=== PATIENT | male | born 1965 | race Caucasian/White ===

== ENCOUNTER → 2020-06-08 | Outpatient (CLI) | payer OTHER, SELFPAY ==
--- NOTE | 2020-06-08 15:35 | US_ITS ---
STUDY: LEFT UPPER EXTREMITY LIMITED ULTRASOUND REASON FOR EXAM: Male, 55 years old. Left shoulder pain and swelling. No lumps identified clinically. TECHNIQUE: Ultrasound evaluation of the left shoulder was performed with real-time and static hall-scale imaging. Images of the contralateral shoulder for comparison. COMPARISON: None. FINDINGS: Within the soft tissues of the left shoulder 0.8 to 1.2 cm deep to the skin surface are a total of 3 well-circumscribed nonvascular hypoechoic nodules measuring at most 6 mm x 6 mm x 2 mm. Several similarly located nonvascular hypoechoic nodules are present in the soft tissues of the right shoulder with the largest measuring 7 mm x 7 mm x 4 mm. US/Head/Neck Soft Tissue IMPRESSION: Subcentimeter superficial nonvascular hypoechoic nodules within the soft tissue of both shoulders of uncertain clinical significance. If further evaluation is clinically warranted consider MRI. Electronically Signed: Yon Guerra MD at 0:05 EDT , Service support ,
== END | disposition home or self-care (01) ==
LOC: US 15:33
PROVIDERS: PCP Family Medicine; Referring Provider Nurse Practitioner Primary Care; Visit Provider Nurse Practitioner Primary Care
DX: R22.9 Localized swelling, mass and lump, unspecified (principal)
CPT/HCPCS: 76536